=== PATIENT | male | born 1960 | race Caucasian/White ===

== ENCOUNTER → 2025-06-19 10:38 | Outpatient (CLI) | payer MEDICARE, OTHER, SELFPAY ==
--- NOTE | 2025-06-19 10:40 | DI.US.S_ITS ---
PROCEDURE: US SOFT TISSUE HEAD AND NECK INDICATIONS: nECK MASS TECHNIQUE: Real-time scanning was performed of the neck region of interest, with image documentation. COMPARISON: None. FINDINGS: Focused ultrasound examination of right facial soft tissue anterior to the right ear and at the level of right mandibular ramus shows a normal appearing lymph no measures 1.5 x 0.6 x 0.5 cm in size. No solid mass or drainable fluid collection. IMPRESSION: Benign-appearing lymph node at the area of interest as above. Dictated by: Tal Kyle M.D. on 06/19/2025 at 11:45 Approved by: Tal Kyle M.D. on 06/19/2025 at 11:46
== END ==
PROVIDERS: Referring Provider Family Medicine; Visit Provider Family Medicine
DX: R22.1 Localized swelling, mass and lump, neck (principal)
CPT/HCPCS: 76536